=== PATIENT | female | born 1975 | race Caucasian/White ===

== ENCOUNTER 2022-01-10 10:13 | Emergency (ER) | payer OTHER, SELFPAY ==
[2022-01-10 10:25] VITALS: BP 133/88; PULSE 91; RESP 18; TEMP 37.5; O2SAT 96; BMI 36.1
--- NOTE | 2022-01-10 10:39 | HMH.EDUTC ---
[facility] [place] Clinical Impression: URI (upper respiratory infection) Qualifiers: URI type: unspecified URI Qualified Code(s): J06.9 - Acute upper respiratory infection, unspecified Disposition: Home, Self-Care Condition on Discharge: Good Instructions: DI for Sinusitis, DI for Cough -- Adult, DI for Headache, DI for COVID-19 (Suspected or Confirmed ) Additional Instructions: *Monitor Temp, Over the counter Motrin or Tylenol as directed/as needed Tylenol every 4 hours and Motrin every 6 hours (as long as your family doctor has told you that you can take it) for fever or pain. and straight to ER if unable to lower temp less than 101.0 after medication given *Warm salt water gargles may help to soothe the throat *Throat Lozenges *Warm fluids like tea with honey may help to soothe the throat *Sleep elevated *Humidifier/Vaporizer Follow up IMMEDIATELY for new or worsening symptoms or no Noticeable improvement over the next 48-72 hours. 911 for difficulty breathing or swallowing You were tested for today for COVID19 your test result should be back in the next 24-48 hours, you may Check your results on the [facility] My Health Portal Make sure to take your Vitamins Vit. C Vit D and Zinc if you can take them Prescriptions: Benzonatate [Benzonatate 100mg cap] 100 mg PO Q8HP PRN #15 cap PRN Reason: Cough [facility]: [facility] methylPREDNISolone [Medrol 4mg tab] 4 mg PO DIRECTED #21 tab Transmission Status: [facility] Azithromycin [Z-Frandy 250mg Tab] 250 mg PO DIRECTED #6 tab Transmission Status: [facility] Referrals: Provider,Referral, MD [Primary Care Provider] - As needed Forms: Work/School Release Time of Disposition: 10:48 Medical Decision Making - Victor Manuel Inquiry Pt receiving controlled substance: No Victor Manuel was queried for this patient: No Vital Signs: 01/10/22 10:25 Temperature 99.5 F Temperature Source Oral Pulse Rate [Left Brachial] 91 H Respiratory Rate 18 Blood Pressure [Left Arm] 133/88 Blood Pressure Mean [Left Arm] 103 Blood Pressure Source [Left Arm] Automatic Cuff Blood Pressure Position [Left Arm] Sitting 02 Sat by Pulse Oximetry 96 Oxygen Delivery Method Room Air Orders (Tests/Meds): ORDERS Category Date Time Status Covid-19 Nasal PCR ([facility]) Routine Lab 01/10/22 10:25 [place] [facility] [place] - General Stated complaint: bodyaches, chills, cough, congestion, fatigue Time Seen by Provider: 01/10/22 10:39 Mode of Arrival: Ambulatory Source of Information: Patient Limitations: No Limitations Description of Symptoms (Recalled from Triage Doc. by RN): PATIENT C/O COUGH, BODY ACHES, CHILLS AND HOT FLASHES THAT STARTED MONDAY NIGHT. SHE REPORTS HER DAUGHTER TESTED POSITIVE FOR COVID ON MONDAY HEENT Symptoms (Recalled from RN notes): No Resp Symptoms (Recalled from RN notes): Yes Skin Symptoms (Recalled from RN notes): No MS Symptoms (Recalled from RN notes): No Functional Status (Recalled from RN notes): WNL - History of Present Illness Provider Complaint: Patient states that her daughter tested positive for COVID on Monday State that she has been having sinus pain and pressure, headache, body aches, chills, scratchy throat and hot flashes States that head hurts worse when she coughs States that today she was feeling worse so she came in to get checked out - Related Data Previous Rx's Medication Instructions Recorded Azithromycin [Z-Frandy 250mg Tab] 250 mg PO DIRECTED #6 tab 01/10/22 Benzonatate [Benzonatate 100mg 100 mg PO Q8HP PRN #15 cap 01/10/22 cap] methylPREDNISolone [Medrol 4mg 4 mg PO DIRECTED #21 tab 01/10/22 tab] Allergies Allergy/AdvReac Type Severity Reaction Status Date / Time No Known Allergies Allergy Verified 01/10/22 10:37 - Worker's Comp Is this a Worker's Comp case?: No [facility] History - Hepatitis A Screen Attestation statement:: This patient has
[2022-01-10 10:57] VITALS: BP 133/88; PULSE 91; RESP 18; TEMP 37.5; O2SAT 96
== END 2022-01-10 11:02 | disposition home or self-care (01) ==
PROVIDERS: Emergency Provider Nurse Practitioner
DX: U07.1 COVID-19 (principal)
CPT/HCPCS: 99212; C9803; G0463; U0003; U0005

== ENCOUNTER 2023-08-22 19:22 | Emergency (ER) | payer BC, SELFPAY ==
[2023-08-22 19:24] VITALS: BP 148/96; PULSE 85; RESP 16; TEMP 36.8; O2SAT 97; BMI 42.4
--- NOTE | 2023-08-22 19:26 | ED_ITS ---
Discharge Plan Disposition Patient Disposition: Home, Self-Care Condition: Good Prescriptions Prescriptions: New albuterol sulfate 90 mcg/actuation HFA aerosol inhaler 2 inh inhalation Q4H PRN (Reason: shortness of breath or wheezing) Qty: 8.5 0RF prednisone 50 mg tablet 50 mg PO DAILY 5 Days Qty: 5 0RF No Action azithromycin 250 MG tablet 250 mg PO DIRECTED Qty: 6 0RF Rx Instructions: Take two (2) tablets on day #1, then one (1) tablet day #2 thru #5 methylprednisolone 4 MG tablet 4 mg PO DIRECTED Qty: 21 0RF Rx Instructions: Take as directed on package instructions benzonatate 100 MG capsule 100 mg PO Q8HP PRN (Reason: Cough) Qty: 15 0RF Referrals Follow up/Referrals: Provider,Referral, MD [Primary Care Provider] - See instructions Activity Restrictions/Add. Instructions Additional Instructions/Restrictions: Stop taking methylprednisolone if you are still taking. You may utilize the rescue inhaler as needed for wheezing. You may alternate Tylenol and Motrin as needed for constitutional symptoms of the flu. I have referred you to pulmonology for further workup for possible COPD. Please return to the emergency department for worsening symptoms or new symptoms as needed. Clinical Impressions Clinical Impression: Influenza COPD (chronic obstructive pulmonary disease) Qualifiers: COPD type: unspecified COPD Qualified Code(s): J44.9 - Chronic obstructive pulmonary disease, unspecified Discharge ED Provider: Maite Morocho General Adult HPI <JUAN C Rangel - Last Filed: 08/22/23 21:36> General Chief complaint: Upper Respiratory Infection Stated complaint: exposed to covid-MCGRAW, sore throat Time Seen by Provider: 08/22/23 19:26 History of Present Illness HPI narrative: Patient presents for evaluation of cough, sore throat, shortness of breath on exertion and a reported exposure to COVID-19. Patient's daughter recently was diagnosed with COVID and they had close exposure on Monday. Patient awoke today with subjective fever cough sore throat. Patient also notes shortness of breath on exertion but no wheezing. Patient is a half a pack a day smoker. Patient denies chest pain chills hemoptysis hematochezia melena hematemesis hematuria. Related Data Previous Rx's Medication Instructions Recorded azithromycin 250 mg tablet 250 mg PO DIRECTED #6 tabs 01/10/22 benzonatate 100 mg capsule 100 mg PO Q8HP PRN Cough #15 caps 01/10/22 methylprednisolone 4 mg tablet 4 mg PO DIRECTED #21 tabs 01/10/22 albuterol sulfate 90 mcg/actuation 2 inh inhalation Q4H PRN shortness 08/22/23 aerosol inhaler of breath or wheezing #8.5 grams prednisone 50 mg tablet 50 mg PO DAILY 5 days #5 tabs 08/22/23 Allergies Allergy/AdvReac Type Severity Reaction Status Date / Time No Known Allergies Allergy Verified 01/10/22 10:37 PFS <JUAN C Rangel - Last Filed: 08/22/23 21:36> [facility] Disclaimer: The information contained in this section may have been updated after the patient was seen, as this information can be updated by other users. Social History Smoking Status: Current every day smoker alcohol intake: never current occupational status: other Travel in the last 8 weeks: None <JUAN C Rangel - Last Filed: 08/22/23 21:36> ROS Obtained: Yes Systems reviewed as appropriate & no additional complaints except as documented Physical Exam <JUAN C Rangel Last Filed: 08/22/23 21:36> General General appearance: alert and in no apparent distress Head Head exam: atraumatic and normal inspection Eye Eye exam: Present normal appearance, PERRL and EOMI ENT ENT exam: Present normal exam, mucous membranes moist and other (Posterior pharynx is erythematous without exudate or tonsillar enlargement) Neck Neck exam: Present normal inspection and full ROM; Absent lymphadenopathy Chest Chest inspection: Present normal inspection and symmetric chest wall rise; Absent tenderness Respiratory Respiratory exam: Present normal lung sounds bilaterally and wheezes (Faint diffuse end expiratory wheezes); Absent respiratory distress or accessory muscle use Cardiovascular Cardiovascular exam: Present regular rate, normal rhythm, normal heart sounds, +S1 and +S2 Abdominal Exam Abdominal exam: Present soft and normal bowel sounds; Absent tenderness, guarding or rebound Extremities Exam Extremities exam: Present normal inspection and full ROM Neurological Exam Neurological exam: Present alert and oriented X3 Psychiatric Psychiatric exam: Present normal affect and normal mood Skin Skin exam: Present dry, normal color and other (Skin is hot to touch but dry) Medical Decision Making <JUAN C Rangel Last Filed: 08/22/23 21:36> Medical Records Medical records reviewed: Yes I reviewed the patient's medical records. Victor Manuel Inquiry Pt receiving controlled substance: No Vital Signs: 08/22/23 19:24 08/22/23 20:48 08/22/23 20:49 Temperature 98.3 F Temperature Source Oral Pulse Rate 84 88 Pulse Rate [Right] 85 Respiratory Rate 16 Blood Pressure Blood Pressure [Right Arm] 148/96 H Blood Pressure Mean [Right Arm] 113 02 Sat by Pulse Oximetry 97 Oxygen Delivery Method 08/22/23 21:41 Temperature 98.4 F Temperature Source Pulse Rate 77 Pulse Rate [Right] Respiratory Rate 18 Blood Pressure 139/81 Blood Pressure [Right Arm] Blood Pressure Mean [Right Arm] 02 Sat by Pulse Oximetry Oxygen Delivery Method Room Air Lab Data Lab results reviewed: Yes I reviewed the patient's lab results. Lab Results 08/22/23 19:29: SARS-CoV-2 (PCR) Not detected, Influenza A Untype (PCR) Detected A, Influenza Type B (PCR) Not detected, Group A Strep Rapid Negative Orders (Tests/Meds): ED MEDICATIONS Discontinued Medications Generic Name Dose Route Start Last Admin Trade Name Freq PRN Reason Stop Dose Admin Acetaminophen 1,000 mg 08/22/23 20:14 08/22/23 20:29 Acetaminophen 500mg Tab PO 08/22/23 20:15 1,000 mg ONCE ONE Administration Albuterol/Ipratropium 3 ml 08/22/23 20:14 08/22/23 20:29 Ipratropium/Albuterol 3 Ml Neb 08/22/23 20:15 3 ml ONCE ONE Administration Dexamethasone Sodium Phosphate 4 mg 08/22/23 20:14 08/22/23 20:29 Dexamethasone 4mg/Ml 1ml Vial IV 08/22/23 20:15 4 mg ONCE ONE Administration Ketorolac Tromethamine 15 mg 08/22/23 20:14 08/22/23 20:29 Ketorolac 30mg/Ml Vial IV 08/22/23 20:15 15 mg ONCE ONE Administration ORDERS Category Date Time Status XR chest portable Stat Exams 08/22/23 20:13 Completed Rapid PCR Covid and Flu A/B Stat Lab 08/22/23 19:29 Completed Strep Scrn Group A (Rapid) Stat Lab 08/22/23 19:29 Completed Strep Screen Confirmation Stat Micro 08/22/23 19:29 Received Medical Decision Narrative: In summary patient is a 47-year-old female who presents to the emergency department for evaluation of cough sore throat shortness of breath and exposure to COVID. Patient is hemodynamically stable upon arrival, afebrile. Physical exam shows faint end expiratory wheezes in all 4 mendoza and nonexudative pharyngitis. Differential diagnosis includes COPD versus asthma versus viral or bacterial respiratory tract infection versus PE. PERC score and years criteria indicate low probability of PE thus CTA PE protocol will be deferred at this time. Initial workup will be conducted with plain film chest x-ray respiratory swabs. Initial interventions include DuoNeb Decadron acetaminophen Tylenol. Initial workup reviewed by me shows the patient is positive for influenza and my personal interpretation of the plain film chest x-ray shows no acute processes.. Upon repeat evaluation improvement in her shortness of breath and reduction of her constitutional symptoms. Given this is appropriate for discharge with referrals to pulmonology, symptomatic treatment for influenza, short course of steroids and an albuterol inhaler. Patient to follow-up with PCP or return to ER for worsening symptoms or as needed <Maite Morocho, DO - Last Filed: 08/22/23 22:57> Vital Signs: 08/22/23 19:24 08/22/23 20:48 08/22/23 20:49 Temperature 98.3 F Temperature Source Oral Pulse Rate 84 88 Pulse Rate [Right] 85 Respiratory Rate 16 Blood Pressure Blood Pressure [Right Arm] 148/96 H Blood Pressure Mean [Right Arm] 113 02 Sat by Pulse Oximetry 97 Oxygen Delivery Method 08/22/23 21:41 Temperature 98.4 F Temperature Source Pulse Rate 77 Pulse Rate [Right] Respiratory Rate 18 Blood Pressure 139/81 Blood Pressure [Right Arm] Blood Pressure Mean [Right Arm] 02 Sat by Pulse Oximetry Oxygen Delivery Method Room Air Lab Data Lab Results 08/22/23 19:29: SARS-CoV-2 (PCR) Not detected, Influenza A Untype (PCR) Detected A, Influenza Type B (PCR) Not detected, Group A Strep Rapid Negative Orders (Tests/Meds): ED MEDICATIONS Discontinued Medications Generic Name Dose Route Start Last Admin Trade Name Freq PRN Reason Stop Dose Admin Acetaminophen 1,000 mg 08/22/23 20:14 02/27/24 20:29 Acetaminophen 500mg Tab PO 02/27/24 20:15 1,000 mg ONCE ONE Administration Albuterol/Ipratropium 3 ml 08/22/23 20:14 08/22/23 20:29 Ipratropium/Albuterol 3 Ml Neb IH 08/22/23 20:15 3 ml ONCE ONE Administration Dexamethasone Sodium Phosphate 4 mg 08/22/23 20:14 08/22/23 20:29 Dexamethasone 4mg/Ml 1ml Vial IV 08/22/23 20:15 4 mg ONCE ONE Administration Ketorolac Tromethamine 15 mg 08/22/23 20:14 08/22/23 20:29 Ketorolac 30mg/Ml Vial IV 08/22/23 20:15 15 mg ONCE ONE Administration ORDERS Category Date Time Status XR chest portable Stat Exams 08/22/23 20:13 Completed Rapid PCR Covid and Flu A/B Stat Lab 08/22/23 19:29 Completed Strep Scrn Group A (Rapid) Stat Lab 08/22/23 19:29 Completed Strep Screen Confirmation Stat Micro 08/22/23 19:29 Received Medical Decision Narrative: In summary patient is a 47-year-old female who presents to the emergency department for evaluation of cough sore throat shortness of breath and exposure to COVID. Patient is hemodynamically stable upon arrival, afebrile. Physical exam shows faint end expiratory wheezes in all 4 mendoza and nonexudative pharyngitis. Differential diagnosis includes COPD versus asthma versus viral or bacterial respiratory tract infection versus PE. PERC score and years criteria indicate low probability of PE thus CTA PE protocol will be deferred at this time. Initial workup will be conducted with plain film chest x-ray respiratory swabs. Initial interventions include DuoNeb Decadron acetaminophen Tylenol. Initial workup reviewed by me shows the patient is positive for influenza and my personal interpretation of the plain film chest x-ray shows no acute processes.. Upon repeat evaluation improvement in her shortness of breath and reduction of her constitutional symptoms. Given this is appropriate for discharge with referrals to pulmonology, symptomatic treatment for influenza, short course of steroids and an albuterol inhaler. Patient to follow-up with PCP or return to ER for worsening symptoms or as needed I was consulted by the DEREC[facility], and we discussed the complexity of the problems being addressed. I approved the treatment and management plan for this patient's care in the emergency department, thus performing a substantive p ortion of the medical decision making. Maite Morocho, DO Critical Care <JUAN C Rangel - Last Filed: 08/22/23 21:36> Critical Care Time Critical Care Time: No
[2023-08-22 19:39] LABS: Coronavirus 19, PCR Not Detected (NotDetected); Influenza B, PCR Not Detected (NotDetected)
[2023-08-22 19:50] LABS: Strep Scrn Group A (Rapid) Negative (Negative)
--- NOTE | 2023-08-22 20:13 | XR_ITS ---
PROCEDURE INFORMATION: Exam: XR Chest Exam date and time: 08/22/2023 8:20 PM Age: 47 years old Clinical indication: Cough and wheezing; Additional info: Cough wheezing shortness of breath TECHNIQUE: Imaging protocol: Radiologic exam of the chest. Views: 1 view. COMPARISON: No relevant prior studies available. FINDINGS: Lungs: Unremarkable. No consolidation. Pleural spaces: Unremarkable. No pleural effusion. No pneumothorax. Heart/Mediastinum: Unremarkable. No cardiomegaly. Bones/joints: Unremarkable. IMPRESSION: No acute findings.
[2023-08-22 20:21] LABS: Influenza A, PCR Detected (NotDetected)
[2023-08-22] MEDS: ACETAMINOPHEN 500MG TAB 1000 MG PO (20:29)
[2023-08-22] MEDS: IPRATROPIUM/ALBUTEROL 3 ML NEB IH (20:29)
[2023-08-22] MEDS: KETOROLAC 30MG/ML VIAL 15 MG IV (20:29)
[2023-08-22] MEDS: DEXAMETHASONE 4MG/ML 1ML VIAL 4 MG IV (20:29)
[2023-08-22 20:48] VITALS: PULSE 84
[2023-08-22 20:49] VITALS: PULSE 88
[2023-08-22 21:41] VITALS: BP 139/81; PULSE 77; RESP 18; TEMP 36.9; O2SAT 97
== END 2023-08-22 21:43 | disposition home or self-care (01) ==
PROVIDERS: Physician Assistant; Emergency Provider Emergency Medicine
DX: J10.1 Influenza due to other identified influenza virus with other respiratory manifestations (principal); J44.9 Chronic obstructive pulmonary disease, unspecified; R05.9 Cough, unspecified; R07.0 Pain in throat
CPT/HCPCS: 71045; 87430; 87636; 96374; 96375; 99284